=== PATIENT | male | born 1935 | race Hispanic/Latino ===

== ENCOUNTER 2017-05-06 10:39 | Emergency (ER) | payer MEDICARE ==
[~2017-05-06] VITALS: Ht 182.9 cm; Wt 89.8 kg
[2017-05-06] MEDS ORDERED: CLONIDINE HCL 0.1 MG TAB PO ONE (11:30)
[2017-05-06] MEDS ORDERED: AMLODIPINE BESYLATE 5 MG TAB PO ONE (12:30)
[2017-05-06] MEDS ORDERED: NORVASC5 MG PO (12:39)
== END 2017-05-06 12:59 | disposition home or self-care (01) ==
LOC: ER 10:39
DX: I10 Essential (primary) hypertension (principal)
CPT/HCPCS: 99282